=== PATIENT | female | born 1985 | race Caucasian/White ===

== ENCOUNTER 2023-10-05 00:50 | Emergency (ER) | payer OTHER ==
[~2023-10-05] VITALS: Ht 154.9 cm; Wt 77.1 kg
[2023-10-05 01:06] VITALS: BP 128/88; PULSE 99; RESP 16; TEMP 97.8; O2SAT 100
[2023-10-05] MEDS: KETOROLAC 60 MG/2 ML VIAL IM ONE (01:39)
[2023-10-05 01:43] VITALS: BP 128/88; PULSE 99; RESP 16; TEMP 97.8; O2SAT 100
[2023-10-05] MEDS ORDERED: IBUP-2213 PO (01:45)
[2023-10-05] MEDS ORDERED: ACET-8905 PO (01:45)
== END 2023-10-05 01:50 | disposition home or self-care (01) ==
LOC: MED 00:50
DX: M25.511 Pain in right shoulder (principal); M25.562 Pain in left knee; M25.561 Pain in right knee; R03.0 Elevated blood-pressure reading, without diagnosis of hypertension; F17.210 Nicotine dependence, cigarettes, uncomplicated; Z98.890 Other specified postprocedural states; Z90.89 Acquired absence of other organs; V89.2XXA Person injured in unspecified motor-vehicle accident, traffic, initial encounter; Y93.89 Activity, other specified; Y92.89 Other specified places as the place of occurrence of the external cause; Y99.8 Other external cause status
CPT/HCPCS: 81025; 96372; 99283; J1885